=== PATIENT | male | born 1955 | race Caucasian/White ===

== ENCOUNTER 2019-09-29 02:21 | Inpatient (IN) | payer MEDICAID ==
[~2019-09-29] VITALS: Ht 162.6 cm; Wt 85.7 kg
[2019-09-29] MEDS ORDERED: SODIUM CHLORIDE 0.9% 1,000 ML IV ONE (02:46)
[2019-09-29 03:23] LABS: BASOPHILS % 0.5 % (0.0-2.0); HEMATOCRIT. 40.9 % (42.0-52.0); HEMOGLOBIN. 13.6 g/dL (14.0-18.0); LYMPHOCYTES % 18.8 % (20.0-50.0); MEAN CORPUSCULAR HEMOGLOBIN 30.2 pg (28.0-32.0); MEAN CORPUSCULAR VOLUME 91.1 fL (80.0-94.0); MEAN PLATELET VOLUME 10.6 fl (7.4-10.4); MONOCYTES % 4.7 % (2.0-8.0); PLATELET 170 x1000/uL (130-400); RED BLOOD CELL COUNT 4.49 mill/uL (4.7-6.1)
[2019-09-29 03:28] LABS: CHLORIDE 109 mEq/L (98-107)
[2019-09-29 04:40] LABS: CLARITY URINE CLEAR (CLEAR); COLOR URINE YELLOW (YELLOW); KETONES URINE NEGATIVE (NEGATIVE); LEUKOCYTE ESTERASE URINE 2+ (NEGATIVE); NITRITE URINE NEGATIVE (NEGATIVE); OCCULT BLOOD URINE NEGATIVE (NEGATIVE); PH URINE 6.5 (4.5-8.0); PROTEIN URINE NEGATIVE (NEGATIVE); SPECIFIC GRAVITY URINE 1.018 (1.005-1.030); UROBILINOGEN URINE 0.2 E.U./dL (0.2-1.0)
[2019-09-29 04:55] LABS: INR 1.2; PARTIAL THROMBOPLASTIN TIME 31.3 sec (23.4-31.0); PROTHROMBIN TIME 12.5 sec (9.6-11.0)
[2019-09-29] MEDS ORDERED: CEFTRIAXONE 1 G PREMIX 50 ML IV SCH (05:15)
[2019-09-29] MEDS ORDERED: MAGNESIUM/ALUMINUM HYDROXIDE/SIMETHICONE 30ML UDC PO PRN (07:00)
[2019-09-29] MEDS ORDERED: IPRATROPIUM/ALBUTEROL 0.5-3(2.5)MG/3ML NEB ORI PRN (07:00)
[2019-09-29] MEDS ORDERED: ONDANSETRON HCL 4MG/2ML INJ IV PRN (07:00)
[2019-09-29] MEDS ORDERED: PIPERACILLIN/TAZ 3.375G PREMIX 50 ML IV SCH (07:00)
[2019-09-29] MEDS ORDERED: KETOROLAC 15MG/ML VIAL IV PRN (07:00)
[2019-09-29] MEDS ORDERED: DOCUSATE SODIUM 100MG CAPSULE PO PRN (07:00)
[2019-09-29] MEDS ORDERED: ACETAMINOPHEN 325MG TABLET PO PRN ×2 (07:00)
[2019-09-29] MEDS ORDERED: ZOLPIDEM TARTRATE 5MG TABLET PO PRN (07:00)
[2019-09-29] MEDS ORDERED: CLONIDINE 0.1MG TABLET PO PRN (07:00)
[2019-09-29] MEDS ORDERED: NITROGLYCERIN 0.4MG TABLET SL SL PRN (07:00)
[2019-09-29] MEDS ORDERED: GUAIFENESIN 200MG/10ML SUGAR FREE UDC PO PRN (07:00)
[2019-09-29] MEDS ORDERED: PIPERACILLIN/TAZOBACTAM 3.375 G in DEXT 5% WATER 100 ML IV SCH (08:00)
[2019-09-29] MEDS ORDERED: VANCOMYCIN 1250MG in DEXTROSE 5% WATER 250ML IV SCH (08:00)
[2019-09-29 08:19] LABS: T4 FREE 0.96 ng/dL (0.76-1.46)
[2019-09-29 08:36] LABS: FOLIC ACID (FOLATE) SERUM 19.4 ng/mL (>5.38)
[2019-09-29 10:21] VITALS: BP 108/66
[2019-09-29 10:29] VITALS: BP 108/66
[2019-09-29 12:00] VITALS: BP 107/72
[2019-09-29] MEDS ORDERED: ASPI-1158 PO (12:08)
[2019-09-29] MEDS ORDERED: LORA-250 MT (12:09)
[2019-09-29] MEDS ORDERED: INSU100I24 SQ (12:10)
[2019-09-29] MEDS ORDERED: ATOR-2 MT (12:10)
[2019-09-29] MEDS ORDERED: METF-414 MT (12:11)
[2019-09-29] MEDS ORDERED: MOM MT (12:11)
[2019-09-29] MEDS ORDERED: TOPUD PO (12:12)
[2019-09-29] MEDS ORDERED: QUET200T PO (12:12)
[2019-09-29] MEDS ORDERED: OLAN10TA3 MT (12:13)
[2019-09-29] MEDS: DEXT 5%/0.9% NACL 1,000 ML IV SCH ×2 (12:36→17:00)
[2019-09-29] MEDS: ASCORBIC ACID 500 MG TABLET PO SCH ×2 (12:36→22:21)
[2019-09-29] MEDS: ZINC SULFATE 220 MG ( 50 ) CAPSULE PO SCH (12:36)
[2019-09-29] MEDS: PANTOPRAZOLE SODIUM 40 MG/VIAL IV SCH (12:37)
[2019-09-29] MEDS: ENOXAPARIN 40MG/0.4ML SYR SUBCUT SCH (12:37)
[2019-09-29] MEDS ORDERED: VANCOMYCIN 1250MG in DEXTROSE 5% WATER 250ML IV NR (14:00)
[2019-09-29] MEDS ORDERED: DEXTROSE 50% WATER 50ML SYRINGE IV PRN (14:30)
[2019-09-29 16:00] VITALS: BP 133/73
[2019-09-29] MEDS ORDERED: VANCOMYCIN 750 MG PREMIX 150 ML IV SCH (17:00)
[2019-09-29] MEDS: BLOOD SUGAR DIAGNOSTIC STRIP TEST SCH ×2 (17:06→21:00)
[2019-09-29] MEDS: INSULIN LISPRO 100 UNITS/ML SUBCUT SCH ×2 (17:15→21:00)
[2019-09-29] MEDS: PIPERACILLIN/TAZOBACTAM 3.375 G in DEXT 5% WATER 100 ML IV SCH (18:34)
[2019-09-29 20:06] VITALS: BP 113/74
[2019-09-29] MEDS: VANCOMYCIN 750 MG PREMIX 150 ML IV SCH (22:00)
[2019-09-30] VITALS: BP 133/84
[2019-09-30] MEDS: PIPERACILLIN/TAZOBACTAM 3.375 G in DEXT 5% WATER 100 ML IV SCH ×3 (02:00→17:43)
[2019-09-30] MEDS: DEXT 5%/0.9% NACL 1,000 ML IV SCH ×3 (03:00→23:14)
[2019-09-30 04:00] VITALS: BP 131/68
[2019-09-30] MEDS: VANCOMYCIN 750 MG PREMIX 150 ML IV SCH ×3 (06:00→21:56)
[2019-09-30] MEDS: BLOOD SUGAR DIAGNOSTIC STRIP TEST SCH ×4 (06:37→21:57)
[2019-09-30] MEDS: INSULIN LISPRO 100 UNITS/ML SUBCUT SCH ×4 (06:37→21:57)
[2019-09-30 08:00] VITALS: BP 133/77
[2019-09-30] MEDS: PANTOPRAZOLE SODIUM 40 MG/VIAL IV SCH (09:00)
[2019-09-30] MEDS: ZINC SULFATE 220 MG ( 50 ) CAPSULE PO SCH (09:55)
[2019-09-30] MEDS: ASCORBIC ACID 500 MG TABLET PO SCH ×2 (09:55→21:57)
[2019-09-30] MEDS: ASPIRIN 325MG EC TABLET PO SCH (09:55)
[2019-09-30] MEDS: ENOXAPARIN 40MG/0.4ML SYR SUBCUT SCH (09:56)
[2019-09-30 12:00] VITALS: BP 99/67
[2019-09-30 12:59] LABS: CHLORIDE 110 mEq/L (98-107)
[2019-09-30] MEDS ORDERED: SODIUM BICARBONATE 4% (2.4MEQ) 5ML VIAL IV ONE (13:06)
[2019-09-30] MEDS ORDERED: LIDOCAINE HCL 1% 20ML VIAL (Pyxis) INJ ONE (13:06)
[2019-09-30 16:00] VITALS: BP 128/70
[2019-09-30 20:00] VITALS: BP 114/69
[2019-10-01] VITALS: BP 125/76
[2019-10-01] MEDS: PIPERACILLIN/TAZOBACTAM 3.375 G in DEXT 5% WATER 100 ML IV SCH ×3 (01:19→17:07)
[2019-10-01 04:00] VITALS: BP 135/71
[2019-10-01] MEDS: VANCOMYCIN 750 MG PREMIX 150 ML IV SCH ×3 (05:51→21:32)
[2019-10-01] MEDS: INSULIN LISPRO 100 UNITS/ML SUBCUT SCH ×4 (06:33→21:33)
[2019-10-01] MEDS: BLOOD SUGAR DIAGNOSTIC STRIP TEST SCH ×4 (06:34→21:27)
[2019-10-01 08:00] VITALS: BP 124/59
[2019-10-01] MEDS: ENOXAPARIN 40MG/0.4ML SYR SUBCUT SCH (08:36)
[2019-10-01] MEDS: ASPIRIN 325MG EC TABLET PO SCH (08:36)
[2019-10-01] MEDS: ZINC SULFATE 220 MG ( 50 ) CAPSULE PO SCH (08:36)
[2019-10-01] MEDS: PANTOPRAZOLE SODIUM 40 MG/VIAL IV SCH (08:36)
[2019-10-01] MEDS: ASCORBIC ACID 500 MG TABLET PO SCH ×2 (08:36→21:32)
[2019-10-01] MEDS: DEXT 5%/0.9% NACL 1,000 ML IV SCH ×2 (08:37→18:05)
[2019-10-01 12:00] VITALS: BP 129/70
[2019-10-01 16:00] VITALS: BP 139/82
[2019-10-01 20:00] VITALS: BP 146/89
[2019-10-02] VITALS: BP 156/94
[2019-10-02] MEDS: PIPERACILLIN/TAZOBACTAM 3.375 G in DEXT 5% WATER 100 ML IV SCH ×2 (01:33→08:44)
[2019-10-02 04:00] VITALS: BP 145/87
[2019-10-02] MEDS: DEXT 5%/0.9% NACL 1,000 ML IV SCH ×2 (05:56→15:00)
[2019-10-02] MEDS: VANCOMYCIN 750 MG PREMIX 150 ML IV SCH (06:27)
[2019-10-02] MEDS: BLOOD SUGAR DIAGNOSTIC STRIP TEST SCH ×2 (06:28→11:32)
[2019-10-02] MEDS: INSULIN LISPRO 100 UNITS/ML SUBCUT SCH ×2 (06:28→11:40)
[2019-10-02 07:00] LABS: CHLORIDE 109 mEq/L (98-107)
[2019-10-02 08:00] VITALS: BP 117/85
[2019-10-02] MEDS: PANTOPRAZOLE SODIUM 40 MG/VIAL IV SCH (08:44)
[2019-10-02] MEDS: ASPIRIN 325MG EC TABLET PO SCH (08:44)
[2019-10-02] MEDS: ASCORBIC ACID 500 MG TABLET PO SCH (08:44)
[2019-10-02] MEDS: ENOXAPARIN 40MG/0.4ML SYR SUBCUT SCH (08:44)
[2019-10-02] MEDS: ZINC SULFATE 220 MG ( 50 ) CAPSULE PO SCH (08:44)
[2019-10-02 11:44] VITALS: BP 117/85
[2019-10-02 12:00] VITALS: BP 119/66
[2019-10-02 16:00] VITALS: BP 120/70
[2019-10-03] MEDS ORDERED: VANCOMYCIN 750 MG PREMIX 150 ML IV SCH (06:00)
[2019-10-03] MEDS ORDERED: FAMOTIDINE 20MG/2ML VIAL IV SCH (09:00)
== END 2019-10-02 16:31 | DRG 720 ==
LOC: ER 02:21 → 5WST 06:00 → ENRESERV 07:41
PROVIDERS: ADMIT Internal Medicine; ATTEND Internal Medicine
PROC: 02HV33Z Insertion of Infusion Device into Superior Vena Cava, Percutaneous Approach (ICD-10-PCS; principal; 2019-09-30)
PROC: B518ZZA Fluoroscopy of Superior Vena Cava, Guidance (ICD-10-PCS; 2019-09-30)
PROC: B548ZZA Ultrasonography of Superior Vena Cava, Guidance (ICD-10-PCS; 2019-09-30)
DX: A41.9 Sepsis, unspecified organism (principal); G92 Toxic encephalopathy; N39.0 Urinary tract infection, site not specified; G82.20 Paraplegia, unspecified; L03.90 Cellulitis, unspecified; D63.8 Anemia in other chronic diseases classified elsewhere; E11.69 Type 2 diabetes mellitus with other specified complication; E87.5 Hyperkalemia; F20.9 Schizophrenia, unspecified; I10 Essential (primary) hypertension; L89.159 Pressure ulcer of sacral region, unspecified stage; M86.9 Osteomyelitis, unspecified; Z86.73 Personal history of transient ischemic attack (TIA), and cerebral infarction without residual deficits; K43.5 Parastomal hernia without obstruction or gangrene; Z79.4 Long term (current) use of insulin
CPT/HCPCS: 36415; 36573; 71045; 74176; 76937; 80048; 80053; 80202; 81003; 82607; 82746; 82962; 83036; 83540; 83550; 83880; 84439; 84443; 84484; 85025; 93005; 93970; 99285; C1725; C9113; J0696; J1650; J1815; J2405; J2543; J3370; J3490; J7030; J7060

== ENCOUNTER 2019-10-17 06:21 | Emergency (ER) | payer MEDICAID ==
[~2019-10-17] VITALS: Ht 157.5 cm; Wt 68.0 kg
[~2019-10-17 06:21] MED LIST: ASPI-1158 PO; ATOR-2 MT; INSU100I24 SQ; LORA-250 MT; METF-414 MT; MOM MT; OLAN10TA3 MT; QUET200T PO; TOPUD PO
[2019-10-17 07:01] VITALS: BP 149/72
[2019-10-17 07:12] LABS: BASOPHILS % 0.5 % (0.0-2.0); EOSINOPHILS % 0.2 % (0.0-5.0); HEMATOCRIT. 41.1 % (42.0-52.0); HEMOGLOBIN. 13.8 g/dL (14.0-18.0); LYMPHOCYTES % 16.9 % (20.0-50.0); MEAN CORPUSCULAR HEMOGLOBIN 30.2 pg (28.0-32.0); MEAN CORPUSCULAR VOLUME 89.9 fL (80.0-94.0); MEAN PLATELET VOLUME 8.7 fl (7.4-10.4); MONOCYTES % 5.5 % (2.0-8.0); NEUTROPHILS % 76.9 % (40.0-76.0); PLATELET 245 x1000/uL (130-400); RED BLOOD CELL COUNT 4.57 mill/uL (4.7-6.1); RED CELL DISTRIBUTION WIDTH 14.6 % (11.6-14.6)
[2019-10-17 07:17] LABS: CHLORIDE 107 mEq/L (98-107)
[2019-10-17 07:19] LABS: INR 1.2; PROTHROMBIN TIME 12.6 sec (9.6-11.0)
[2019-10-17] MEDS ORDERED: DIATRIZOATE MEGLUMINE 300ML INFUS BTL UR ONE (08:26)
[2019-10-17] MEDS ORDERED: LIDOCAINE HCL 2% JELLY 5ML ONE (08:51)
== END 2019-10-17 13:30 | disposition home or self-care (01) ==
LOC: ER 06:21
DX: Z46.6 Encounter for fitting and adjustment of urinary device (principal); R33.9 Retention of urine, unspecified; E11.9 Type 2 diabetes mellitus without complications; F20.9 Schizophrenia, unspecified; Z86.73 Personal history of transient ischemic attack (TIA), and cerebral infarction without residual deficits
CPT/HCPCS: 36415; 51610; 80053; 85025; 85610; 93005; 99285; Q9958